=== PATIENT | male | born 1935 | race Caucasian/White ===

== ENCOUNTER 2017-02-09 05:18 | Day surgery (SDC) | payer MEDICARE ==
--- NOTE | ~2017-02-09 | EGD ---
EGD REPORT [facility] [address] [place] [address] NAME: JAMES WALLS : 39 STATUS : REG [facility]#: [id number] AGE: 81 ADM/REG DATE : 02/09/17 MR#: [id number] REPORT SERV DATE: 02/09/17 DICTATED BY: ALEJANDRA MONTENEGRO DATE: 02/09/17 REPORT STATUS : Draft TRANS[facility]IBED BY: [facility] DATE: 02/09/17 Endoscopy Center Patient Name: James Walls Date of : 1935 Attending MD: ALEJANDRA MONTENEGRO MD Procedure Date No Time: 02/09/2017 Procedure: Upper GI endoscopy Indications: Iron deficiency anemia, Heme positive stool Referring MD: LIUDMILA BASHIR Medicines: Monitored Anesthesia Care Complications: No immediate complications. Procedure: Pre-Anesthesia Assessment: - ASA Grade Assessment: III - A patient with severe systemic disease. After obtaining informed consent, the endoscope was passed under direct vision. Throughout the procedure, the patient's blood pressure, pulse, and oxygen saturations were monitored continuously. The GIF [id number] was introduced through the mouth, and advanced to the second part of duodenum. The upper GI endoscopy was accomplished without difficulty. The patient tolerated the procedure well. 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 The maximum longitudinal extent of these mucosal changes was 2 cm in length. Mucosa was biopsied with a cold forceps for histology in a targeted manner at intervals of 2 cm at 42 cm from the incisors and at 44 cm from the incisors. At 44 cm circumferential Jensen's appearing mucosa and 4 quadrant biopsies taken. 3 Tongues of Jensen's from 43 to 42 cm with largest diameter of 1.5 cm across. Biopsies were taken at 42 cm targeted. A small hiatus hernia was present. A single 5 mm sessile polyp with no stigmata of recent bleeding was found in the gastric fundus with a white top ? xanthoma. . The polyp was removed with a cold biopsy forceps. Resection and retrieval were complete. Four small angioectasias were found in the second part of the duodenum. Coagulation for bleeding prevention using argon plasma at 0.5 liters/minute and 20 vasquez was successful. The cardia and gastric fundus were normal on retroflexion. 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 Biopsied. - Hiatus hernia. EGD REPORT [address] [place]. [address] NAME: JAMES WALLS : 39 STATUS : [place] [facility] [place] [id number] AGE: 81 ADM/REG DATE : 02/09/17 MR#: [id number] REPORT SERV DATE: 02/09/17 DICTATED BY: ALEJANDRA MONTENEGRO DATE: 02/09/17 REPORT STATUS : Draft TRANSCRIBED BY: [employer] DATE: 02/09/17 - A single gastric polyp. Resected and retrieved. 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 Treated with thermal therapy. Recommendation: - Await pathology results. - Patient has a contact number available for emergencies. The signs and symptoms of potential delayed complications were discussed with the patient. Return to normal activities tomorrow. Written discharge instructions were provided to the patient. - Regular diet. - Continue present medications. - Return to GI clinic in 1 month. - Perform a colonoscopy. Procedure Code(s): --- Professional --- 91401, Esophagogastroduodenoscopy, flexible, transoral; with biopsy, single or multiple Diagnosis Code(s): --- Professional --- K22.9, Disease of esophagus, unspecified K44.9, Diaphragmatic hernia without obstruction or gangrene K31.7, Polyp of stomach and duodenum K31.819, Angiodysplasia of stomach and duodenum without bleeding D50.9, Iron deficiency anemia, unspecified R19.5, Other fecal abnormalities CPT copyright 2013 [employer]. All rights reserved. The codes documented in this report are preliminary and upon tab cutting machine operator review may be revised to meet current compliance requirements. ALEJANDRA MONTENEGRO MD 02/09/2017 8:01 AM This report has been signed electronically. Number of Addenda: 0 Note Initiated On: 02/09/2017 7:32 AM Scope Withdrawal Time 0 hours 0 minutes 0 seconds [id number] [id number]
[~2017-02-09 05:18] MED LIST: ACET500CAP PO; ASAB PO; C25 PO; C5 PO; DUONEB INH; IRON PO; MAGOX4 PO; MULTIPLE VIT PO; MULTIVITAMI1 PO; PRILOSEC OTC20 MG PO; PRINZIDE1 TA1 PO; ZESTORETIC1 TAB PO
[2017-02-09 06:35] LABS: BASOPHILS 0.1 %; BASOPHILS ABSOLUTE 0.01 10/3/uL (0.0-0.16); EOSINOPHILS 2.7 %; HEMOGLOBIN 9.1 g/dL (13.6-17.8); IMMATURE GRANULOCYTES 0.3 %; IMMATURE GRANULOCYTES ABSOLUTE 0.02 10/3/uL (0.0-0.11); LYMPHOCYTES 8.3 %; LYMPHOCYTES ABSOLUTE 0.61 10/3/uL (0.67-4.30); MEAN CORPUS HGB CONC 30.7 g/dL (32.0-36.0); MEAN CORPUSCULAR HEMOGLOB 24.3 pg (26.0-34.0); MEAN CORPUSCULAR VOLUME 78.9 fL (80-100); MEAN PLATELET VOLUME 8.4 fL (9.2-13.0); MONOCYTES 7.3 %; MONOCYTES ABSOLUTE 0.54 10/3/uL (0.21-1.20); NEUTROPHILS 81.3 %; NEUTROPHILS ABSOLUTE 5.98 10/3/uL (2.02-8.40); PLATELET COUNT 347 10/3/uL (150-400); RBC DISTRIBUTION WIDTH 14.8 % (12.0-16.0); RED CELL COUNT 3.75 10/6/uL (4.7-6.1); WHITE BLOOD CELLS 7.4 10/3/uL (4.5-10.5)
[2017-02-09 06:36] LABS: HEMATOCRIT 29.6 % (40.0-51.0); MANUAL DIFF NO %
[2017-04-03] MEDS ORDERED: NORV5 PO (10:26)
== END 2017-02-09 23:59 | disposition home or self-care (01) ==
LOC: DMU 05:18
PROVIDERS: Anesthesiology; Internal Medicine Gastroenterology
PROC: 0DB68ZX Excision of Stomach, Via Natural or Artificial Opening Endoscopic, Diagnostic (ICD-10-PCS; 2017-02-09)
PROC: 0DB38ZX Excision of Lower Esophagus, Via Natural or Artificial Opening Endoscopic, Diagnostic (ICD-10-PCS; principal; 2017-02-09 07:00)
PROC: 0DB98ZX Excision of Duodenum, Via Natural or Artificial Opening Endoscopic, Diagnostic (ICD-10-PCS; 2017-02-09 07:00)
DX: K31.7 Polyp of stomach and duodenum (principal); K22.70 Barrett's esophagus without dysplasia; K44.9 Diaphragmatic hernia without obstruction or gangrene; K31.819 Angiodysplasia of stomach and duodenum without bleeding; D50.9 Iron deficiency anemia, unspecified; R19.5 Other fecal abnormalities; H91.90 Unspecified hearing loss, unspecified ear; H54.7 Unspecified visual loss; I10 Essential (primary) hypertension; I48.0 Paroxysmal atrial fibrillation; J44.9 Chronic obstructive pulmonary disease, unspecified; Z99.81 Dependence on supplemental oxygen
CPT/HCPCS: 85025; 88305; J2370